=== PATIENT | male | born 1995 | race Hispanic/Latino ===

== ENCOUNTER 2019-06-03 14:24 | Emergency (ER) | payer OTHER ==
[~2019-06-03] VITALS: Ht 172.7 cm; Wt 72.6 kg
--- OUTSIDE RECORDS SUMMARY | 2019-06-03 14:27 | XMS REPORT ---
Author Author [facility] Address Unknown Phone Unavailable Care Team Providers Care Box Finisher Name Role Phone Unavailable Unavailable Problems This patient has no known problems. Allergies, Adverse Reactions, Alerts This patient has no known allergies or adverse reactions. Medications This patient has no known medications. Encounters Start Date/Time End Date/Time Encounter Type Admission Type Attending [facility] Care Department Encounter ID 2019-06-10 00:00:00 2019-06-10 00:00:00 Outpatient [facility] [id number] 2019-02-10 15:29:20 2019-02-10 15:29:20 Outpatient [facility] [id number] 2019-02-01 00:00:00 2019-02-01 00:00:00 Outpatient [facility] [id number] 2019-01-27 15:52:51 2019-01-27 15:52:51 Outpatient [facility] [id number] 2019-01-27 14:27:44 2019-01-27 14:27:44 Outpatient [facility] [id number] 2019-01-27 00:00:00 2019-01-27 00:00:00 Outpatient [facility] [id number] 2018-12-10 00:00:00 2018-12-10 00:00:00 Outpatient [facility] [id number] 2018-10-27 15:20:32 2018-10-27 15:20:32 Outpatient [facility] [id number] 2018-06-17 12:56:00 2018-06-17 12:56:00 Emergency [facility] [id number] 2017-08-21 15:15:03 2017-08-21 15:15:03 Outpatient [facility] [id number] 2016-11-27 10:06:06 2016-11-27 10:06:06 Outpatient [facility] [id number] 2016-11-26 15:41:41 2016-11-26 15:41:41 Outpatient [facility] [id number] 2016-11-25 00:00:00 2016-11-25 00:00:00 Outpatient [facility] [id number] 2016-08-27 10:04:30 2016-08-27 10:04:30 Outpatient [facility] [id number] 2016-08-27 09:28:09 2016-08-27 09:28:09 Outpatient [facility] [id number]
[2019-06-03] MEDS ORDERED: IBUPROFEN 600 MG TAB PO STA (14:41)
[2019-06-03] MEDS ORDERED: IBUPROFEN 400 MG TAB ONE (14:49)
--- NOTE | 2019-06-03 15:33 | Diagnostic Imaging Report ---
TECHNIQUE: Frontal and lateral views of the chest. INDICATION: 23-year-old man with chest pain. COMPARISON: None. FINDINGS: LINES/TUBES: None. LUNGS: The lungs are well inflated and clear. PLEURA: No pleural effusion or pneumothorax. HEART AND MEDIASTINUM: The cardiomediastinal silhouette is within normal limits. SOFT TISSUES AND BONES: Unremarkable. IMPRESSION: No acute cardiopulmonary abnormalities. Signed by: Shantelle Ford MD on 06/03/2019 3:31 PM
== END 2019-06-03 17:34 | disposition home or self-care (01) ==
LOC: ER 14:24
DX: R07.89 Other chest pain (principal); E11.9 Type 2 diabetes mellitus without complications
CPT/HCPCS: 71046; 93005; 99283